=== PATIENT | female | born 1975 | race Caucasian/White ===

== ENCOUNTER 2021-11-02 12:57 | Emergency (ER) | payer OTHER, SELFPAY ==
[2021-11-02 13:45] VITALS: BP 156/74; PULSE 82; RESP 18; TEMP 36.7; O2SAT 99; BMI 36.0
--- NOTE | 2021-11-02 14:25 | ED_ITS ---
HPI - Skin/Abscess/Foreign Bdy General Chief complaint: Skin/Abscess/Foreign Body Stated complaint: possible shingles Time Seen by Provider: 11/02/21 13:42 Source: patient Mode of arrival: ambulatory Limitations: no limitations History of Present Illness HPI narrative: left flank redness, patient concerned about shingles. She had been on keflex for 4 days because she thought she had a kidney infection with flank pain MD complaint: rash Onset (ago): day(s) Tetanus up to date: yes Location: back Severity: moderate Quality: burning and sharp Pain Consistency: constant Relieving factors: none Associated symptoms: chills Related Data Allergies Allergy/AdvReac Type Severity Reaction Status Date / Time lisinopril [LISINOPRIL] Allergy Mild SWELLING Unverified 05/07/20 17:36 prednisone [PREDNISONE] Allergy Unknown UNKNOWN Unverified 05/07/20 17:36 SUGAR SUBSTITUTES Allergy Unknown UNKNOWN Uncoded 05/07/20 17:36 Review of Systems Constitutional: Constitutional: Reports no additional constitutional complaints Eyes: Eyes: Reports no additional eye complaints ENT: Denies dizziness Cardiovascular: Cardiovascular: Reports no additional cardiovascular complaints Respiratory: Respiratory: Reports as per HPI Gastrointestinal: Gastrointestinal: Reports no additional gastrointestinal complaints Genitourinary: Genitourinary: Reports no additional female genitourinary complaints Musculoskeletal: Musculoskeletal: Reports no additional musculoskeletal complaints Integumentary/Breasts: Skin/Breast: Denies rash Neurologic: Reports system reviewed and no additional complaints, except as documented, Denies dizziness and Denies Sensory deficit (Neuro) Psychiatric: Psychiatric: Denies anxiety [facility] Past Medical History Medical History No known health problems Social History Social History Advance Directives: No Advance Directives Information Provided: No Patient : No Physical Exam Vital Signs: Vital Signs: Last Vital Signs Temp 98.0 F 11/02/21 13:45 Pulse 82 11/02/21 13:45 Resp 18 11/02/21 13:45 BP 156/74 H 11/02/21 13:45 Pulse Ox 99 11/02/21 13:45 BMI result Body Mass Index 36.0 Const: General: healthy appearing Nutritional Appearance: obese Orientation/consciousness: oriented to person and patient oriented x3 Limitations: no limitations HENMT: Head: Yes normal to inspection Ears: external ears normal General nose exam: Normal external nose present Mouth: Normal oral and palatal mucosa present and oropharynx normal Throat: Yes posterior oropharynx normal Eyes: General: appearance normal, both eyes and all related structures Neck: Other: supple Neck: Yes normal visual inspection Chest: Chest palpation & inspection: normal inspection of the chest Resp: Auscultation: clear to auscultation bilaterally Cardio: Jugular venous distension: no JVD Rate: regular rate Rhythm: regular rhythm Heart sounds: S1 normal heart sound present and S2 normal heart sound present GI: Inspection: Yes normal to inspection Palpation (GI): Soft to palpation, nontender and No hepatosplenomegaly present Auscultation: normal bowel sounds : General: Yes no CVA tenderness Back/Spine/Pelvis: Back: no CVA tenderness Skin: Other: left flank with erythema and swelling, firm Neuro: General: oriented to person and patient oriented x3 Cranial nerves: Yes CN's II-XII intact bilaterally Motor exam (neuro): 5/5 motor strength present throughout Sensory Exam: No Sensory deficit (Neuro) Extrem: General: Yes normal to inspection Psych: Appearance: grossly normal Course Reevaluation(s) Reevaluation #1: Under bedside ultrasound, large area of fluid seen Time: 14:28 Procedures Procedure Narrative Procedure Narrative: Patient prepped and draped in sterile fashion. 2% epi with lidocaine used for anesthesia. 11 blade used, pus removed, packing placed. Patient tolerated procedure well Discharge Plan Discharge Clinical Impression: Abscess of skin or subcutaneous tissue Patient Disposition: Home, Self-Care Instructions: Abscess (ED) Additional Instructions: remove packing in 48 hours. finish your keflex Referrals: Fady Guevara MD [Primary Care Provider] - 10 days
[2021-11-02] MEDS: Lidocaine HCl 2%/Epi 1:100,000 20 ML VIAL 10 ML SUBCUT (14:34)
== END 2021-11-02 14:40 | disposition home or self-care (01) ==
LOC: HO.ED 14:33
PROVIDERS: Emergency Provider Emergency Medicine; PCP Internal Medicine
DX: L02.211 Cutaneous abscess of abdominal wall (principal)
CPT/HCPCS: 10060; 87071; 87205; 99283; 99284

== ENCOUNTER 2021-11-04 09:09 | Emergency (ER) | payer OTHER, SELFPAY ==
[2021-11-04 09:14] VITALS: BP 153/87; PULSE 77; RESP 19; TEMP 36.6; O2SAT 100; BMI 35.4
--- NOTE | 2021-11-04 09:48 | ED.WOUNDLAC ---
HPI - Wound/Laceration General Chief Complaint: Wound/Laceration Stated Complaint: drain removal Time Seen by Provider: 11/04/21 09:48 Source: patient Mode of arrival: ambulatory Limitations: no limitations History of Present Illness HPI narrative: 46 y/o female presenting for wound re-evaluation and packing removal. She was seen here on 11/02 and had an I&D to an abscess on her left flank. Patient reports it was ultrasounded and found to be a deep infection. Packing was placed and she was sent on home on Keflex. She states when she changed the dressing there was bloody drainage. She tried to remove the packing but felt lightheaded. It overall is feeling better. No fever or chills. Onset (ago): day(s) Patient tetanus UTD: Yes Associated symptoms: none Treatments prior to arrival: bandage Related Data Allergies Allergy/AdvReac Type Severity Reaction Status Date / Time lisinopril [LISINOPRIL] Allergy Mild SWELLING Unverified 05/07/20 17:36 prednisone [PREDNISONE] Allergy Unknown UNKNOWN Unverified 05/07/20 17:36 SUGAR SUBSTITUTES Allergy Unknown UNKNOWN Uncoded 05/07/20 17:36 Review of Systems Review of Systems: Constitutional: No Fever, No Chills Cardiovascular: No Chest Pain, No SOB Gastrointestinal: No Nausea, No Vomiting, No abdominal Pain Musculoskeletal: No joint pain, No Myalgias Skin: + Skin Lesions, No rash Neuro: No Weakness, No Numbness, + Dizziness, No Headache Psych: + Anxiety/Panic Heme/Lymph: No Bruising, No Lymphadenopathy PMFSH Past Medical History Medical History No known health problems Social History Social History Advance Directives: No Advance Directives Information Provided: No Physical Exam Vital Signs: Vital Signs: Last Vital Signs Temp 98 F 11/04/21 09:14 Pulse 77 11/04/21 09:14 Resp 19 11/04/21 09:14 BP 153/87 H 11/04/21 09:14 Pulse Ox 100 11/04/21 09:14 BMI result Body Mass Index 35.4 Appearance: Alert. Oriented X3. No acute distress. HEENT: normal inspection CVS: Normal heart rate and rhythm. Pulses normal. Respiratory: No respiratory distress. Skin: Skin warm and dry. Normal skin color. Normal skin turgor. No rashes. Back: left flank with a well-healing abscess, small amount of blood tinged drainage on the dressing, packing protruding. minor erythema and warmth of the surrounding area, nontender. Extremities: normal inspection x4, normal ROM Neuro: Oriented X 3. No motor deficit. No sensory deficit. Course Course Course Narrative: 46-year-old female presents to the ER for wound re-evaluation and packing removal. She was seen here on the for a large left flank abscess that required incision and drainage and a large amount of packing. Procedures Procedure Narrative Procedure Narrative: Large amount of iodoform packing was removed from the left flank abscess. No drainage of purulent material. was repacked with less amount of iodoform packing, complicated by pain. No bleeding. Patient tolerated well. Critical Care Time Critical Care Time Critical Care Time: No Discharge Plan Discharge Clinical Impression: Abscess Patient Disposition: Home, Self-Care Instructions: Abscess Follow-up (ED) Additional Instructions: Your wound abscess culture is still pending. Continue the antibiotics as previously prescribed. Return to the ER in 2 days for wound evaluation and packing removal, or you can do this on your own at home. If you notice any worsening symptoms such as drainage of pus, increased redness, increased pain, increased swelling, call your doctor come back to the ER for further evaluation. Interventions: ED Discharge Assessment Last Done: 11/04/21 10:34 Discharge Date/Time: 11/04/21 10:36
== END 2021-11-04 10:36 | disposition home or self-care (01) ==
PROVIDERS: Emergency Provider Emergency Medicine; PCP Internal Medicine
DX: Z48.01 Encounter for change or removal of surgical wound dressing (principal); L02.211 Cutaneous abscess of abdominal wall
CPT/HCPCS: 99283

== ENCOUNTER 2023-11-14 17:19 | Emergency (ER) | payer OTHER, SELFPAY ==
[2023-11-14 17:50] VITALS: BP 165/88; PULSE 115; RESP 20; TEMP 37.2; O2SAT 99; BMI 43.6
--- NOTE | 2023-11-14 17:56 | ED.GENADULT ---
HPI - General Adult General Chief complaint: Skin/Abscess/Foreign Body Stated complaint: Abscess right leg Time Seen by Provider: 11/14/23 21:16 Source: patient Mode of arrival: ambulatory Limitations: no limitations History of Present Illness HPI narrative: Patient is a 48-year-old female who presents emergency department for evaluation of an abscess in the right gluteal fold, states where her buttocks meets the mid posterior thigh. Onset was 3 days ago. Progressively worsening. Has tried warm moist compresses without significant improvement. Very painful to sit on. Reports a history of prior abscesses requiring incision and drainage. She is prescribed Percocet for chronic pain management, states that this has not alleviated her pain. She is requesting drainage of the abscess at this time. She denies any personal history of MRSA or diabetes. Denies any additional skin lesions. Denies fevers or chills. Related Data Previous Rx's Medication Instructions Recorded cephalexin 500 mg capsule 500 mg PO QID #27 caps 11/14/23 doxycycline hyclate 100 mg capsule 100 mg PO BID #13 caps 11/14/23 Allergies Allergy/AdvReac Type Severity Reaction Status Date / Time lisinopril [LISINOPRIL] Allergy Mild SWELLING Unverified 05/07/20 17:36 prednisone [PREDNISONE] Allergy Unknown UNKNOWN Unverified 05/07/20 17:36 SUGAR SUBSTITUTES Allergy Unknown UNKNOWN Uncoded 05/07/20 17:36 Review of Systems Review of Systems: Yes all other systems are reviewed and are negative [facility] Past Medical History Attestation statement: The following information was validated with the patient. Source: old records reviewed Medical History No known health problems Social History Social History Advance Directives: No Advance Directives Information Provided: No Physical Exam ED Vital Signs: Vital Signs - 24 hr 11/14/23 17:50 11/15/23 00:04 11/15/23 00:22 Temperature 99 F 98.9 F 98.9 F Pulse Rate 115 H 84 84 Respiratory Rate 20 17 17 Blood Pressure 165/88 H 128/78 128/78 Pulse Oximetry 99 98 98 Oxygen Delivery Method Room Air Room Air Room Air BMI result Body Mass Index 43.6 Appearance: Alert.?Oriented to person, place and time. No acute distress.?Normal affect. Eyes: Pupils equal, round and reactive to light.? ENT: Pharynx normal.?? Neck: Normal inspection.? Neck supple.?? CVS: Heart sounds normal. Tachycardia Pulses normal.?? Respiratory: No respiratory distress.? Lung sounds clear to auscultation bilaterally?? Abdomen: Soft and non-tender. Normoactive bowel sounds. No pulsatile mass.?? Skin: Skin warm and dry.? Normal skin color.? 4 x 3 cm fluctuant abscess in the right gluteal sulcus with surrounding erythema and induration extending towards the intergluteal cleft Neuro: Moves all extremities spontaneously. Ambulates with normal steady gait. Course Course Course Narrative: RME; 48-year-old female presents ED for right gluteal abscess pain for couple of days. Will be evaluated [facility]. Medications Administered Discontinued Medications Generic Name Dose Route Start Last Admin Trade Name Freq PRN Reason Stop Dose Admin Cephalexin HCl 500 mg 11/14/23 23:47 11/15/23 00:06 Cephalexin 500 Mg Capsule PO 11/14/23 23:48 500 mg ONCE ONE Administration Doxycycline Monohydrate 100 mg 11/14/23 23:47 11/15/23 00:06 Doxycycline Monohydrate 100 Mg Capsule PO 11/14/23 23:48 100 mg ONCE ONE Administration Lidocaine HCl 5 ml 11/14/23 22:20 11/14/23 22:43 Lidocaine Hcl 1 % Mpf 5 Ml Vial SUBCUT 11/14/23 22:21 5 ml ONCE ONE Administration Lidocaine/Epinephrine/Tetracaine 1 ml 11/14/23 22:20 11/14/23 22:43 Lidocaine/Racepinep/Tetracaine 3 Ml Gel.Pf.Guilherme TOPICAL 11/14/23 22:21 1 ml ONCE ONE Administration Procedures Abscess I/D Site: other (Buttock) Side (if applicable): right Local Anesthetic: lidocaine 1% Amount of anesthesia used (mL): 5 Technique: incised with blade Irrigation: Yes Medical Decision Making Medical Decision Making MDM Narrative: Patient is a 48-year-old female who presents emergency department painful abscess to the right gluteal sulcus as per HPI [employer] section of this note. Central fluctuance, to be amenable to drainage with incision, see procedural section of this note for further detail, copious amounts of purulent drainage was removed. Was tachycardic upon presentation likely secondary to pain, declined to have serum labs obtained evaluation of leukocytosis, of note this did improve and reports notable post procedural pain relief. Prescription for antibiotics were sent to pharmacy for surrounding cellulitis. Examination is not consistent with Brayan gangrene, myositis, early no suspicion for deeper involvement/osteomyelitis. Discussed strict return precautions. Outpatient follow-up with her primary care provider. All questions answered. Stable for discharge Differential Diagnosis Differential Diagnoses: The differential diagnosis associated with the presentation includes (See narrative above) Admission/Observation Consideration of admission/observation: Escalation of care including admission/observation considered (See narrative above) Discharge Plan Discharge Clinical Impression: Abscess of skin or subcutaneous tissue Patient Disposition: Home, Self-Care Instructions: Abscess Incision and Drainage (DC) Additional Instructions: Complete the entire course of antibiotics as prescribed. Return back to emergency department any new or worsening symptoms or concerns such as increasing pain, swelling, redness, fevers, chills, inability to tolerate oral antibiotics. On doxycycline, do not take pills immediately before going to bed and swallow pills with plenty of water. Avoid direct sunlight, iron, antacids, and Pepto Bismol. Call your provider if you develop new ringing in your ears, new problems hearing, dizziness, difficulty swallowing, rash, abdominal discomfort, nausea, or diarrhea.? Contact the general surgery office 1st thing tomorrow morning to arrange for a follow-up visit within the next few days. Prescriptions: New doxycycline hyclate 100 mg capsule 100 mg PO BID Qty: 13 0RF cephalexin 500 mg capsule 500 mg PO QID Qty: 27 0RF Referrals: Bita Ken MD [Physician] - Fady Guevara MD [Primary Care Provider] - Stand Alone Forms: Work/School Release Interventions: ED Discharge Assessment Last Done: 11/15/23 00:22 Discharge Date/Time: 11/15/23 00:23
[2023-11-14] MEDS: Lidocaine HCl 1 % MPF 5 ML VIAL SUBCUT (22:43)
[2023-11-14] MEDS: Lidocaine/Racepinep/Tetracaine 3 ML GEL.PF.APP 1 ML TOPICAL (22:43)
[2023-11-15 00:04] VITALS: BP 128/78; PULSE 84; RESP 17; TEMP 37.2; O2SAT 98
[2023-11-15] MEDS: Doxycycline Monohydrate 100 MG CAPSULE PO (00:06)
[2023-11-15] MEDS: cephALEXin 500 MG CAPSULE PO (00:06)
[2023-11-15 00:22] VITALS: BP 128/78; PULSE 84; RESP 17; TEMP 37.2; O2SAT 98
== END 2023-11-15 00:23 | disposition home or self-care (01) ==
PROVIDERS: Emergency Provider Student in an Organized Health Care Education/Training Program; PCP Internal Medicine
DX: L02.31 Cutaneous abscess of buttock (principal)
CPT/HCPCS: 10060; 99283; 99284

== ENCOUNTER 2025-03-11 15:38 | Emergency (ER) | payer OTHER, SELFPAY ==
[2025-03-11 15:44] VITALS: BP 144/83; PULSE 73; RESP 16; TEMP 36.7; O2SAT 95; BMI 38.9
--- NOTE | 2025-03-11 15:49 | ED.GENADULT ---
HPI - General Adult General Chief complaint: Wound/Laceration Stated complaint: ?Cellulitis Time Seen by Provider: 03/11/25 18:03 Source: patient Mode of arrival: ambulatory Limitations: no limitations History of Present Illness ED Provider: Dr. Satnam Mario HPI narrative: 49-year-old female who presents emergency department for evaluation of abscess located in her left abdominal wall area. The patient states that she developed a painful red tender area to her left lateral abdominal wall proximally 4 days prior. She states that the area of redness is now swollen in extremely painful to touch. She states that she took 2 doses of Keflex with no relief his symptoms. The patient states that she has had an abscess in the past that required incision and drainage. Related Data Previous Rx's ?Medication ?Instructions ?Recorded cephalexin 500 mg capsule 500 mg PO QID #27 caps 11/14/23 doxycycline hyclate 100 mg capsule 100 mg PO BID #13 caps 11/14/23 cephalexin 500 mg capsule 500 mg PO QID 7 days #28 caps 03/11/25 doxycycline hyclate 100 mg tablet 100 mg PO Q12H 7 days #14 tabs 03/11/25 ondansetron 4 mg disintegrating 4 mg PO Q6H PRN nausea and 03/11/25 tablet vomiting #14 tabs oxycodone 5 mg tablet 5 mg PO Q4H PRN pain #14 tabs 03/11/25 Allergies Allergy/AdvReac Type Severity Reaction Status Date / Time lisinopril (LISINOPRIL) Allergy Mild SWELLING Verified 03/11/25 15:51 prednisone (PREDNISONE) Allergy Unknown UNKNOWN Verified 03/11/25 15:51 SUGAR SUBSTITUTES Allergy Unknown UNKNOWN Uncoded 05/07/20 17:36 Review of Systems Review of Systems: Yes all other systems are reviewed and are negative PMF Past Medical History Medical History No known health problems Social History Social History Unable to assess alcohol history related to: Unknown Smoked in Last 30 Days: No Use of substances other than those prescribed or required for medical reasons: Unknown Advance Directives: No Advance Directives Information Provided: No Physical Exam ED Vital Signs: Vital Signs - 24 hr 03/11/25 15:44 03/11/25 18:59 Temperature 98.1 F 98.1 F Pulse Rate 73 73 Respiratory Rate 16 16 Blood Pressure 144/83 H 144/83 H Pulse Oximetry 95 95 Oxygen Delivery Method Room Air Room Air BMI result Body Mass Index 38.9 Vital signs revealed an elevated blood pressure of 144/83 otherwise unremarkable. Exam: Abdominal wall: Patient has left lateral abdominal wall has an area of erythema measuring a proximally 8 x 4 cm with a central area of flocculence measuring a proximally 3 x 3 cm. The erythema is warm to the touch. The area of flocculence is tender to palpation. Course Course Course Narrative: RME: 49 yold female presents to the ED for left flank redness and swollen mass. Patient states history of abscess multiple times during in the same area. Physical exam positive for large area of erythema fluctuant mass that will need to be drained. Labs ordered Medications Administered Discontinued Medications Generic Name Dose Route Start Last Admin Trade Name Freq PRN Reason Stop Dose Admin Cephalexin HCl 500 mg 03/11/25 18:42 03/11/25 18:51 Cephalexin 500 Mg Capsule PO 03/11/25 18:43 500 mg ONCE ONE Administration Doxycycline Monohydrate 100 mg 03/11/25 18:42 03/11/25 18:51 Doxycycline Monohydrate 100 Mg Capsule PO 03/11/25 18:43 100 mg ONCE ONE Administration Lidocaine HCl 5 ml 03/11/25 18:11 03/11/25 18:17 Lidocaine Hcl 1 % Mpf 5 Ml Vial INFILTRATI 03/11/25 18:12 5 ml ONCE STA Administration Lidocaine HCl 5 ml 03/11/25 18:11 03/11/25 18:17 Lidocaine Hcl 1 % Mpf 5 Ml Vial INFILTRATI 03/11/25 18:12 5 ml ONCE ONE Administration Procedures Abscess I/D Site: abdomen Side (if applicable): left Local Anesthetic: lidocaine 1% Amount of anesthesia used (mL): 10 Technique: incised with blade (#11) Sent for culture/gram staining?: Yes Irrigation: No Packing used?: iodoform (1/4 inch packing) Complications: pain Medical Decision Making Medical Decision Making MDM Narrative: 49-year-old female who presents emergency department for evaluation of abscess located in her left abdominal wall area. The patient states that she developed a painful red tender area to her left lateral abdominal wall proximally 4 days prior. She states that the area of redness is now swollen in extremely painful to touch. She states that she took 2 doses of Keflex with no relief his symptoms. The patient states that she has had an abscess in the past that required incision and drainage.Vital signs revealed an elevated blood pressure. Left lateral abdominal skin exam is consistent with cellulitis with an abscess. Differential diagnosis: Includes but is not limited to Cellulitis, abscess, MRSA , MSSA, streptococcal infection Course: My independent interpretation patient's laboratory evaluation is as follows, [place] [address]. CMP was unremarkable. The patient had in abscess which was flocculent and I discuss the incision, drainage and packing she agreed to the procedure. For proximally 200 cc of purulent material was expressed friend in the abscess cavity. Abscess cavity was packed with quarter-inch iodoform gauze. Patient was given prescriptions for doxycycline 100 mg q.12 hours x7 days and Keflex 500 mg q.i.d. x7 days. She was given her 1st dose of these medications here in the emergency department. patient was given printed and verbal instructions and discharged home here she was also given a work note. Admission/Observation Consideration of admission/observation: Escalation of care including admission/observation considered ( yes) Lab Data 03/11/25 15:58 03/11/25 15:58 Labs: Lab Results 03/11/25 Range/Units 15:58 WBC 16.3 H (4.8-10.8) X10*3/uL RBC 4.69 (4.20-5.50) X10*6/uL Hgb 13.2 (12.0-16.0) g/dl Hct 41.3 (37.0-47.0) % MCV 88.1 (80.0-98.0) fL MCH 28.1 (27.0-33.0) pg MCHC 32.0 (31.0-35.0) g/dl RDW 12.9 (11.0-16.0) % Plt Count 357 (160-400) X10*3/uL MPV 9.0 L (9.4-12.3) fL Immature Gran % (Auto) 0.4 (0.0-0.4) % Neut % (Auto) 72.5 (45-73) % Lymph % (Auto) 20.6 (20-40) % [place] % (Auto) 4.7 (2-11) % Eos % (Auto) 1.2 (0-4) % Baso % (Auto) 0.6 (0-2) % Lymph # (Auto) 3.4 (1.2-4.9) X10*3/uL [place] # (Auto) 0.8 (0.1-1.2) X10*3/uL Eos # (Auto) 0.2 (0.0-0.4) X10*3/uL Baso # (Auto) 0.1 (0.0-0.2) X10*3/uL Abs Immat Gran (auto) 0.07 H (0.00-0.03) X10*3/uL Absolute Neuts (auto) 11.8 H (2.0-8.3) x10*3/uL Absolute Nucleated RBC 0.000 (0.0-0.012) X10*3/uL Nucleated RBC % (auto) 0.0 (0.0-0.2) /100WBC Sodium 143 (135-145) mmol/L Potassium 4.0 (3.3-5.1) mmol/L Chloride 109 H (96-108) mmol/L Carbon Dioxide 26 (22-29) mmol/L Anion Gap 12 (12-20) BUN 10 (9-16) mg/dL Creatinine 0.92 (0.5-1.4) mg/dL Estim Creat Clear Calc 103.3 Estimated GFR > 60 Random Glucose 97 (60-115) mg/dL Calcium 9.2 (8.4-10.2) mg/dL Total Bilirubin 0.3 (0.0-1.0) mg/dL AST 21 (5-31) U/L ALT 27 (0-31) U/L Alkaline Phosphatase 97 (39-117) U/L Total Protein 7.2 (6.5-8.0) g/dL Albumin 4.3 (3.5-5.0) g/dL Prescription Management I considered prescription management with: Antibiotic ( Keflex and doxycycline) Discharge Plan Discharge Clinical Impression: Abdominal wall abscess, Abdominal wall cellulitis Patient Disposition: Home, Self-Care Additional Instructions: You had an abscess (collection of pus) to your abdominal wall. There was a large amount of pus that was drained from the abscess. I estimate there was 8 oz (200 mL) of pus that drained out of the wound. The wound was packed with iodoform gauze. The gauze needs to be removed in 4 days, you can do this yourself or return to the emergency department or an urgent care to have the packing removed. If the packing falls out before 4 days it does not need to be replaced. Apply heating pad on low to the redness/abscess area of your abdomen. This increases the blood flow to the area and help the healing process. Take Keflex (cephalexin) 500 mg pills, 1 pill 4 times a day for 7 days. Take doxycycline 100 mg, 1 pill every 12 hours for 7 days Take ibuprofen 200 mg pills, 3 pills every 6 hours as needed for pain. Take Tylenol (acetaminophen) 500 mg pills, 2 pills every 4-6 hours as needed for pain. For pain not relieved by ibuprofen or Tylenol take oxycodone 5 mg pills, 1 pill every 4 hours as needed for pain. Do not drive or work while taking this medication since they can cause sleepiness. Oxycodone is a narcotic medication that can be addicting. If you are concerned about addiction you can ask the pharmacist for less pills or do not get this prescription filled. Follow-up with your doctor in 2 days. Please return to the emergency department if your symptoms get worse or if you develop any symptoms that are concerning to you. Prescriptions: New cephalexin 500 mg capsule 500 mg PO QID 7 Days Qty: 28 0RF ondansetron 4 mg tablet,disintegrating 4 mg PO Q6H PRN (Reason: nausea and vomiting) Qty: 14 0RF doxycycline hyclate 100 mg tablet 100 mg PO Q12H 7 Days Qty: 14 0RF oxycodone 5 mg tablet 5 mg PO Q4H PRN (Reason: pain) Qty: 14 0RF Rx Instructions: Partial Fill upon patient request. No Action doxycycline hyclate 100 mg capsule 100 mg PO BID Qty: 13 0RF cephalexin 500 mg capsule 500 mg PO QID Qty: 27 0RF Stand Alone Forms: Work/School Release Interventions: ED Discharge Assessment Last Done: 03/11/25 18:59 Discharge Date/Time: 03/11/25 19:00 Print Language: Lithuanian
[2025-03-11 16:02] LABS: MANUAL DIFF FLAG NO
[2025-03-11 16:03] LABS: Hematocrit 41.3 % (37.0-47.0); Hemoglobin 13.2 g/dl (12.0-16.0); Imm Gran Abs Auto 0.07 X10*3/uL (0.00-0.03); Imm Gran Pct Auto 0.4 % (0.0-0.4); Lymphocytes Absolute Auto 3.4 X10*3/uL (1.2-4.9); Mean Corpuscular HGB Conc 32.0 g/dl (31.0-35.0); Mean Corpuscular Hemoglobin 28.1 pg (27.0-33.0); Mean Corpuscular Volume 88.1 fL (80.0-98.0); NRBC Abs Auto 0.000 X10*3/uL (0.0-0.012); NRBC Pct Auto 0.0 /100WBC (0.0-0.2); Platelet Count 357 X10*3/uL (160-400); Red Blood Count 4.69 X10*6/uL (4.20-5.50); White Blood Count 16.3 X10*3/uL (4.8-10.8)
[2025-03-11 16:17] LABS: Alanine Aminotransferase 27 U/L (0-31); Albumin Level 4.3 g/dL (3.5-5.0); Alkaline Phosphatase 97 U/L (39-117); Anion Gap 12 (12-20); Aspartate Amino Transferase 21 U/L (5-31); Blood Urea Nitrogen 10 mg/dL (9-16); Calcium 9.2 mg/dL (8.4-10.2); Carbon Dioxide 26 mmol/L (22-29); Chloride 109 mmol/L (96-108); Creatinine Clr Calc Pharmacy 103.3; Estimated Glomerular Filt Rate > 60; Potassium 4.0 mmol/L (3.3-5.1); Sodium 143 mmol/L (135-145); Total Protein 7.2 g/dL (6.5-8.0)
[2025-03-11] MEDS: Lidocaine HCl 1 % MPF 5 ML VIAL INFILTRATI ×2 (18:17)
[2025-03-11 18:59] VITALS: BP 144/83; PULSE 73; RESP 16; TEMP 36.7; O2SAT 95
== END 2025-03-11 19:00 | disposition home or self-care (01) ==
PROVIDERS: Physician Assistant; Emergency Provider Emergency Medicine Emergency Medical Services; PCP Internal Medicine
DX: L02.211 Cutaneous abscess of abdominal wall (principal)
CPT/HCPCS: 10060; 36415; 80053; 85025; 87070; 87205; 99284; J2003